=== PATIENT | female | born 1980 | race Caucasian/White ===

== ENCOUNTER 2020-04-02 15:34 | Outpatient (CLI) | payer OTHER, SELFPAY ==
--- NOTE | ~2020-04-02 | XR_ITS ---
EXAMINATION: XR chest 2V EXAM DATE: 04/02/2020 15:59 INDICATION: Medication monitoring. TB positive Reactive test. TECHNIQUE: Frontal and lateral projections of the chest obtained and reviewed. There is no prior simone dy for comparison. FINDINGS: The lungs are clear. There are no pleural effusions. The cardiomediastinal silhouette is within normal limits. There is no pneumothorax suspected. The bones and soft tissues are unremarkab le. There are cholecystectomy clips. IMPRESSION: Unremarkable chest x-ray exam. Reviewed, dictated and finalized at location A.
== END 2020-04-02 15:35 | disposition home or self-care (01) ==
PROVIDERS: PCP Family Medicine
DX: R89.9 Unspecified abnormal finding in specimens from other organs, systems and tissues (principal); Z51.81 Encounter for therapeutic drug level monitoring
CPT/HCPCS: 71046

== ENCOUNTER → 2022-01-22 11:24 | Outpatient (CLI) | payer OTHER, SELFPAY ==
--- NOTE | ~2022-01-22 | MM_ITS ---
EXAMINATION: MM screening [facility]erry BI w dilma HISTORY: Screening mammogram TECHNIQUE: Craniocaudal and mediolateral oblique 3-D tomosynthesis images were obtained and synthetic 2-D images were generated. CAD analysis was submitted and interpreted. COMPARISON: 03/27/2015 BREAST PARENCHYMAL COMPOSITION: The breasts are heterogeneously dense, which may obscure small masses . FINDINGS: RIGHT BREAST: There are possible low-density masses in the middle and posterior third of the lower, s lightly outer breast, best appreciated on the mediolateral oblique view LEFT BREAST: There are possible masses in the middle third of the lower breast best appreciated on th e craniocaudal view. IMPRESSION: 1. Bilateral breast masses. 2. Additional mammographic views and possible breast ultrasound are recommended. BI-RADS Category 0: Incomplete: Needs additional imaging evaluation. Reviewed, dictated and finalized at location A. N [employer] IMPRESSION: 1. Bilateral breast masses. 2. Additional mammographic views and possible breast ultrasound are recommended . BI-RADS Category 0: Incomplete: Needs additional imaging evaluation.
== END ==
PROVIDERS: Visit Provider Obstetrics & Gynecology
DX: Z12.31 Encounter for screening mammogram for malignant neoplasm of breast (principal); R92.8 Other abnormal and inconclusive findings on diagnostic imaging of breast
CPT/HCPCS: 77063; 77067

== ENCOUNTER → 2022-02-09 09:21 | Outpatient (CLI) | payer OTHER, SELFPAY ==
--- NOTE | ~2022-02-09 | MMUS_ITS ---
EXAMINATION: MM diagnostic kerry BI w dilma, US breast BI complete HISTORY: 02/08/2022 mammographic screening examination reporting possible masses in middle third of lo wer left breast and middle and posterior third of lower slightly outer right breast TECHNIQUE: Additional 3-D tomosynthesis images of both breasts were performed and synthetic 2-D image s were generated. CAD analysis was submitted and interpreted. High resolution complete bilateral lin st ultrasound including all 4 quadrants and subareolar areas was performed. COMPARISON: 02/08/2022 bilateral screening mammogram BREAST PARENCHYMAL COMPOSITION: The breasts are heterogeneously dense, which may obscure small masses . FINDINGS: MAMMOGRAPHIC FINDINGS: No suspicious mass, architectural distortion, malignant calcification, skin thickening or retraction of either breast is evident. ULTRASOUND: No suspicious mass or shadowing of either breast is detected. Bilateral breast cysts are noted. Right breast: Cysts are noted at 12:00 4 cm from nipple, 7:00 4 cm from nipple, 10:00 at 5 cm from nipple; the larg est cyst is 5.3 x 4.2 x 6.2 mm, 11:00 3 cm from nipple. A 7 x 5.6 x 5.9 mm subareolar right breast cy st is noted. There is a circumscribed hypoechoic lesion at 9:00 6 cm from nipple with through transmission, benign in appearance. Left breast: Occasional left breast cysts are noted, including up to 3.7 mm cyst at 1:00 1 cm from nipple, up to 5 mm cyst at 2:00 0.5 m from nipple and a 5.2 x 9.4 x 11 mm cyst at 5:00 0.5 cm from nipple. IMPRESSION: 1. Benign findings 2. No mammographic evidence of malignancy Routine mammographic screening Reviewed, dictated and finalized at location A. IMPRESSION: 1. Benign findings 2. No mammographic evidence of malignancy Routine mammographic screening
== END ==
PROVIDERS: Visit Provider Obstetrics & Gynecology
DX: R92.8 Other abnormal and inconclusive findings on diagnostic imaging of breast (principal)
CPT/HCPCS: 76641; 77062; 77066; G0279

== ENCOUNTER 2022-05-01 10:15 | Emergency (ER) | payer OTHER, SELFPAY ==
[2022-05-01 10:53] VITALS: BP 129/78; PULSE 96; RESP 18; TEMP 38; O2SAT 100
--- NOTE | 2022-05-01 11:44 | ED.URI ---
HPI - URI/Sore Throat General Chief Complaint: Upper Respiratory Infection Stated Complaint: bodyache,sorethroat Time Seen by Provider: 05/01/22 11:00 Source: patient Mode of arrival: ambulatory Limitations: no limitations History of Present Illness HPI Narrative: Ms. Jules is a 41-year-old female patient presenting to the clinic today with complaints of body aches and sore throat for 2 days. She has a fever of 38 ?C in the clinic today. Has been hot and cold chills. She denies any headache, shortness of breath, chest pain, or nausea vomiting diarrhea. States that she just got back from [place] a couple days ago. Does report some nasal congestion this morning. Had recent COVID test to come back in the [place] and was negative at that time. She feels as though she has strep. She denies any known exposure to anybody with strep, COVID or influenza. MD elicited complaint: sore throat and nasal congestion Related Data Home Medications Medication Instructions Recorded Confirmed bupropion HCl 150 mg 24 hr tablet, 150 tablet PO DAILY 05/01/22 05/01/22 extended release escitalopram oxalate 20 mg tablet 20 tablet DAILY 05/01/22 05/01/22 phentermine 37.5 mg tablet 37.5 tablet DAILY 05/01/22 05/01/22 ustekinumab 90 mg/mL subcutaneous 90 syr subcut DIRECTED 05/01/22 05/01/22 syringe (Stelara) Allergies Allergy/AdvReac Type Severity Reaction Status Date / Time latex Allergy Unknown Verified 05/01/22 11:48 adhesive tape AdvReac Itching Verified 07/18/21 08:45 Review of Systems Review of Systems: Pertinent positives per HPI. Patient denies any fever, chills, rash, headache, visual changes, dizziness, cough, shortness of breath, chest pain, palpitations, nausea, vomiting, diarrhea, constipation, abdominal pain, or any urinary issues. [facility] Past Medical History Medical History Abnormal colonoscopy (~2018) Crohns Abnormal CT of the abdomen Crohn's disease of ileum Hx of migraines Ileitis Ovarian cyst Partial small bowel obstruction Small bowel obstruction Terminal ileitis Vaginal delivery x 2 Surgical History Surgical History Hx of cholecystectomy Family History Family History Mother Hypertension Cataract Social History Social History Smoking status: Never smoker Second hand tobacco smoke exposure: No Alcohol intake: current Drinks per week: 2 Substance use: never Gender identity (if verbalized by the patient): Female Spiritual care concerns: No Agree to blood products: Yes Comments At the time of my signature, I reviewed and agree with the nursing past medical, surgical, social, and family history. There is no relevant family history pertinent to the patient complaint. Exam Narrative: General: Well-developed, well nourished, in no apparent distress Head: Normocephalic, atraumatic Eyes: Pupils equally round and reactive to light bilaterally, EOM intact, sclera and conjunctive clear, no discharge, lids normal Ears: TMs intact and clear, ear canals clear, no drainage, grossly hearing normal. Nose: Nares patent, clear nasal discharge, no inflammation, no sinus tenderness. Mouth: Oral pharynx without lesions or masses, good dentition, MMM. Oropharynx red Neck: Supple, trachea midline, no enlargement of anterior or posterior cervical nodes, no thyroid masses or goiter palpable. Cardio: Regular rate and rhythm, s1 and s2 normal, no murmur appreciated. Resp: Clear to auscultation bilaterally, no rhonchi, rales, wheezing or rubs Course Course Emergency Course: Portions of this record may have been created with voice recognition software. Level of Care: Express Care Visit Vital Signs Vital signs: Vital Signs Temperature 38.0 C H /
== END 2022-05-01 12:15 | disposition home or self-care (01) ==
PROVIDERS: Emergency Provider Nurse Practitioner Family; PCP Internal Medicine
DX: U07.1 COVID-19 (principal); K50.90 Crohn's disease, unspecified, without complications
CPT/HCPCS: 87081; 87426; 87804; 87880; 99213; C9803; G0463

== ENCOUNTER → 2023-04-03 07:52 | Outpatient (CLI) | payer BC, SELFPAY ==
--- NOTE | ~2023-04-03 | MM_ITS ---
EXAMINATION: MM screening [facility] BI w dilma HISTORY: Screening mammogram TECHNIQUE: Craniocaudal and mediolateral oblique 3-D tomosynthesis images were obtained and synthetic 2-D images were generated. CAD analysis was submitted and interpreted. COMPARISON: 02/09/2022, 01/22/2022, 03/27/2015 BREAST PARENCHYMAL COMPOSITION: The breasts are heterogeneously dense, which may obscure small masses . FINDINGS: Bilateral breast cysts are again noted. No suspicious mass, calcification, or architectural distortion are identified in either breast to suggest malignancy. There has been no suspicious inter airam change. IMPRESSION: 1. No mammographic evidence of malignancy. 2. Recommend routine screening mammography in one year. BI-RADS Category 2: Benign finding(s). Reviewed, dictated and finalized at location A.
== END ==
PROVIDERS: PCP Internal Medicine; Visit Provider Internal Medicine
DX: Z12.31 Encounter for screening mammogram for malignant neoplasm of breast (principal)
CPT/HCPCS: 77063; 77067

== ENCOUNTER 2024-04-08 07:50 | Outpatient (CLI) | payer BC, SELFPAY ==
--- NOTE | ~2024-04-08 | MM_ITS ---
EXAMINATION: MM screening kerry BI w dilma HISTORY: Screening TECHNIQUE: Craniocaudal and mediolateral oblique 3-D tomosynthesis images were obtained and synthetic 2-D images were generated. CAD analysis was submitted and interpreted. COMPARISON: Comparison to multiple prior studies sequentially, with oldest reviewed study dated 04/2015. BREAST PARENCHYMAL COMPOSITION: Dense: The breasts are heterogeneously dense, which may obscure small masses FINDINGS: There are developing masses scattered in both breasts. There are no suspicious calcificatio ns. No definite architectural distortion. IMPRESSION: 1. Developing bilateral breast masses which are obscured by dense fibroglandular tissue. 2. Additional mammographic views and possible breast ultrasound are recommended. BI-RADS Category 0: Incomplete: Needs additional imaging evaluation. Reviewed, dictated and finalized at location A. IMPRESSION: 1. Developing bilateral breast masses which are obscured by dense fibroglandula r tissue. 2. Additional mammographic views and possible breast ultrasound are recommended . BI-RADS Category 0: Incomplete: Needs additional imaging evaluation.
== END 2024-04-08 07:51 ==
PROVIDERS: PCP Internal Medicine; Visit Provider Internal Medicine
DX: Z12.31 Encounter for screening mammogram for malignant neoplasm of breast (principal); R92.8 Other abnormal and inconclusive findings on diagnostic imaging of breast
CPT/HCPCS: 77063; 77067

== ENCOUNTER 2024-05-11 08:00 | Outpatient (CLI) | payer BC, SELFPAY ==
--- NOTE | ~2024-05-11 | MMUS_ITS ---
EXAMINATION: MM diagnostic kerry BI w dilma, US breast BI complete HISTORY: Follow-up bilateral breast masses TECHNIQUE: Additional 3-D tomosynthesis images of the breasts were performed and synthetic 2-D images were generated. CAD analysis was submitted and interpreted. High resolution complete bilateral breas t ultrasound was performed. COMPARISON: 04/08/2024 BREAST PARENCHYMAL COMPOSITION: Dense: The breasts are heterogeneously dense, which may obscure small masses FINDINGS: MAMMOGRAPHIC FINDINGS: There are scattered masses throughout both breasts which are obscured by fibroglandular tissue. ULTRASOUND: Complete bilateral US of all 4 quadrants of the breasts and retroareolar region was reviewed. Multipl e bilateral breast cysts corresponding to the mammographic findings. Largest cyst in the right breast measures 2.6 cm near the nipple. Largest cyst in the left breast measures 1.7 cm at 3:00, 3 cm from the nipple. No suspicious sonographic masses. IMPRESSION: 1. No evidence for malignancy in either breast. Benign bilateral breast cysts. 2. Routine yearly screening mammogram and regular clinical breast examination are recommended. BI-RADS Category 2: Benign finding(s). Reviewed, dictated and finalized at location B. IMPRESSION: 1. No evidence for malignancy in either breast. Benign bilateral breast cysts. 2. Routine yearly screening mammogram and regular clinical breast examination a re recommended. BI-RADS Category 2: Benign finding(s).
== END 2024-05-11 08:01 ==
PROVIDERS: PCP Internal Medicine; Visit Provider Internal Medicine
DX: R92.8 Other abnormal and inconclusive findings on diagnostic imaging of breast (principal)
CPT/HCPCS: 76641; 77062; 77066; G0279

== ENCOUNTER 2025-04-14 07:52 | Outpatient (CLI) | payer OTHER, SELFPAY ==
--- NOTE | ~2025-04-14 | MM_ITS ---
EXAMINATION: MM screening kerry BI w dilma HISTORY: Screening TECHNIQUE: Craniocaudal and mediolateral oblique 3-D tomosynthesis images were obtained and synthetic 2-D images were generated. CAD analysis was submitted and interpreted. COMPARISON: Comparison to multiple prior studies sequentially, with oldest reviewed study dated 01/2022. BREAST PARENCHYMAL COMPOSITION: Dense: The breasts are extremely dense, which lowers the sensitivity of mammography. FINDINGS: There are developing bilateral breast masses. Masses are obscured by dense fibroglandular t issue. There are no significant change to benign breast calcifications. IMPRESSION: 1. Developing bilateral breast masses. 2. Additional spot compression and mediolateral views with possible follow-up breast ultrasound recom mended. BI-RADS Category 0: Incomplete: Needs additional imaging evaluation. Reviewed, dictated and finalized at location A. IMPRESSION: 1. Developing bilateral breast masses. 2. Additional spot compression and mediolateral views with possible follow-up b reast ultrasound recommended. BI-RADS Category 0: Incomplete: Needs additional imaging evaluation.
== END 2025-04-14 07:53 | disposition home or self-care (01) ==
LOC: MICIMG 07:53
PROVIDERS: PCP Internal Medicine; Visit Provider Obstetrics & Gynecology
DX: Z12.31 Encounter for screening mammogram for malignant neoplasm of breast (principal); R92.8 Other abnormal and inconclusive findings on diagnostic imaging of breast
CPT/HCPCS: 77063; 77067

== ENCOUNTER 2025-05-15 08:48 | Outpatient (CLI) | payer OTHER, SELFPAY ==
--- NOTE | ~2025-05-15 | MM_ITS ---
EXAMINATION: MM diagnostic kerry BI w dilma HISTORY: Bilateral breast masses TECHNIQUE: Additional 3-D tomosynthesis images of the breasts were performed and synthetic 2-D images were generated. CAD analysis was submitted and interpreted. COMPARISON: 04/14/2025, 05/11/2024, 04/08/2024 BREAST PARENCHYMAL COMPOSITION:Dense: The breasts are extremely dense, which lowers the sensitivity o f mammography. FINDINGS: Spot compression views confirm low-density bilateral breast masses, which are readily simil ar distribution to prior exam, and shown to previously represent simple cysts. No overtly suspicious mass seen. No suspicious distortion or microcalcification. IMPRESSION: No mammographic evidence for malignancy. Findings compatible with breast cysts, which are similar to prior exam. BI-RADS Category 2: Benign finding(s). Reviewed, dictated and finalized at location .
== END 2025-05-15 08:49 | disposition home or self-care (01) ==
LOC: MICIMG 08:48
PROVIDERS: PCP Internal Medicine; Visit Provider Obstetrics & Gynecology
DX: R92.8 Other abnormal and inconclusive findings on diagnostic imaging of breast (principal)
CPT/HCPCS: 77062; 77066; G0279